=== PATIENT | male | born 1975 | race Caucasian/White ===

== ENCOUNTER → 2017-12-08 | Outpatient (CLI) | payer BC, OTHER ==
[~2017-12-08] MED LIST: ASPIRIN325 PO; ATORVASTATIN CA40 MG PO; CLARITIN10 MG PO; COZAAR 50 MG TA50 M1 PO; EFFIENT10 MG PO; FLOMAX PO; FLOMAX0.4 MG PO; HYDROCODONE-AP1 EAC6 PO; IBUPROFEN 600600 M1 PO; METOPROLOL SUCC25 M1 PO; NOHOMEMEDICATIONS; NORCO 5-325 TA1 EACH PO; ONDANSETRON HCL4 M2 PO; PERCOCET 5-3251 EACH PO; PHENERGAN 25 MG25 M1 PO; POTASSIUM CITRA5 ME1 PO; POTASSIUM CITRATE; PRILOSEC40 MG PO; ZOFRAN 4 MG ORAL4 M1 DIS; ZOFRAN ODT4 MG PO
--- NOTE | ~2017-12-08 | 2DMMODE ---
[facility] [employer] [place] [place] [address] 2 D/M-MODE ECHOCARDIOGRAM Name: VASQUEZAMIE Room #: REG [facility]#: [id number] Admission: 12/08/17 Attend Phys: Justice Anderson MD Discharge: Date of : 73 Date of Service: 12/08/17 1342 Report #: [id number] THIS REPORT FOR: //name// APPROVED REPORT Study performed: 12/08/2017 13:00:17 EXAM: Comprehensive 2D, Doppler, and color-flow Echocardiogram Patient Location: Out-Patient Room #: Echo lab Status: routine BSA: 2.11 HR: 71 bpm BP: 146/90 mmHg Other Information Study Quality: Good Indications CAD Hypertension/HDD 2D Dimensions RVDd: 37.82 mm LVEF(%): 62.56 (>50%) IVSd: 12.67 (7-11mm) LVOT Diam: 24.57 (18-24mm) LVDd: 49.71 mm PWd: 12.00 (7-11mm) Ascending Ao: 35.44 (22-36mm) LVDs: 32.86 (25-40mm) Aortic Root: 33.28 mm IVC: 19.00 mm Medina's LVEF: 62.56 % Volumes Left Atrial Volume (Systole) Single Plane 4CH: 46.79 mL Single Plane 2CH: 51.04 mL LA ESV Index: 27.00 mL/m2 Aortic Valve AoV Peak Nestor.: 1.12 m/s AO Peak Gr.: 5.05 mmHg LVOT Max P.37 mmHg LVOT Max V: 0.92 m/s YANIRA Vmax: 3.87 cm2 Mitral Valve E/A Ratio: 0.6 MV Decel. Time: 224.03 ms [facility] [employer] [place] [address] 2 D/M-MODE ECHOCARDIOGRAM Name: AMIE VASQUEZ Room #: [facility]#: [id number] Admission: 12/08/17 Attend Phys: Justice Anderson MD Discharge: Date of : 73 Date of Service: 12/08/17 1342 Report #: [id number] MV E Max Nestor.: 0.45 m/s MV A Nestor.: 0.71 m/s MV PHT: 64.97 ms IVRT: 156.86 ms Pulmonary Valve PV Peak Nestor.: 0.93 m/s PV Peak Gr.: 3.45 mmHg Pulmonary Vein P Vein S: 0.51 m/s P Vein A: 0.28 m/s P Vein D: 0.42 m/s P Vein A Dur.: 87.7 msec P Vein S/D Ratio: 1.21 Tricuspid Valve TR Peak Nestor.: 2.47 m/s TR Peak Gr.: 24.36 mmHg PA Pressure: 29.00 mmHg Left Ventricle The left ventricle is normal size. Mild concentric left ventricular hypertrophy. The left ventricular systolic function is normal. The left ventricular ejection fraction is within the normal range. LVEF is 55-60%. Grade I - abnormal relaxation pattern. Right Ventricle The right ventricle is normal size. The right ventricular systolic function is normal. Atria The left atrium size is normal. The right atrium size is normal. Aortic Valve The aortic valve is normal in structure. No aortic regurgitation is present. There is no aortic valvular stenosis. Mitral Valve The mitral valve is normal in structure. There is no mitral valve regurgitation noted. No evidence of mitral valve stenosis. Tricuspid Valve The tricuspid valve is normal in structure. There is trace tricuspid regurgitation. The right atrial pressure is estimated at mmHg. There is no pulmonary hypertension. Pulmonic Valve [address] [address] 2 D/M-MODE ECHOCARDIOGRAM Name: VASQUEZAMIE Room #: REG CL [facility]#: [id number] Admission: 12/08/17 Attend Phys: Justice Anderson MD Discharge: Date of : 73 Date of Service: 12/08/17 1342 Report #: [id number] The pulmonary valve is normal in structure. There is no pulmonic valvular regurgitation. Great Vessels The aortic root is normal in size. IVC is normal in size and collapses >50% with inspiration. Pericardium There is no pericardial effusion. <Conclusion> The left ventricle is normal size. The left ventricular systolic function is normal. Grade I - abnormal relaxation pattern. The right ventricle is normal size. The left atrium size is normal. The right atrium size is normal. The aortic valve is normal in structure. There is no mitral valve regurgitation noted. <ELECTRONICALLY SIGNED> By: Justice Anderson MD 12/08/17 1342 134 134 Justice Anderson MD /INF
== END ==
LOC: CV 08:23
DX: I25.10 Atherosclerotic heart disease of native coronary artery without angina pectoris (principal); I10 Essential (primary) hypertension

== ENCOUNTER → 2017-12-22 | Outpatient (CLI) | payer BC, OTHER ==
--- NOTE | ~2017-12-22 | EXE ---
[facility] [employer] [place] [address] STRESS ECHOCARDIOGRAM Name: VASQUEZAMIE Room #: REG [facility]#: [id number] Admission: 12/22/17 Attend Phys: Justice Anderson MD Discharge: Date of : 73 Date of Service: 12/22/17 1426 Report #: [id number] THIS REPORT FOR: //name// APPROVED REPORT Exam: Stress Echocardiogram Indication: CAD s/p MA, CAD s/p PCI, Hypertension Patient Location: Out-Patient Stress Nurse: Amanda Briggs RN Room #: Echo lab Status: routine Ht: 5 ft 8 in HR: 77 bpm BP: 140/58 mmHg Medical History Medical History: CAD s/p MA, CAD s/p stent, HTN, Hyperlipidemia Previous Cardiac Procedures: Myocardial infarctionPCI Exercise History: Physically active Procedure The patient underwent an Exercise Stress Test using the Chema Protocol. Blood pressure, heart rate, and EKG were monitored. An Echocardiogram was performed by chiller technician in four stages in quad fashion. At peak stress, four selected images were obtained and placed side by side with resting images for comparison. Stress Test Details Stress Test: Exercise stress testing was performed using a Chema protocol. HR Resting HR: 71 bpm Max Heart Rate (APMHR): 177 bpm Max HR Achieved: 157 bpm Target HR (85% APMHR): 150 bpm % of APMHR: 88 Recovery HR: 80 bpm HR response to stress: Normal HR response to stress BP Resting BP: 140/58 mmHg Max BP: 198/102 mmHg Recovery BP: 146/96 mmHg ECG Resting ECG: Sinus Rhythm [facility] [email or web address] [address] STRESS ECHOCARDIOGRAM Name: AMIE VASQUEZ Room #: REG CL [facility]#: [id number] Admission: 12/22/17 Attend Phys: Justice Anderson MD Discharge: Date of : 73 Date of Service: 12/22/17 1426 Report #: [id number] Stress ECG: Sinus Rhythm ST Change: Non-ischemic Clinical Reason for Termination: Maximal effort Exercise duration: 12 min sec Highest Stage Achieved: Stage 4: 4.2 mph at 16% grade. Exercise capacity: 13.7 METs Overall Exercise Capacity for Age: Good Pre-Stress Echo The resting Echocardiogram showed normal left ventricular contractility with an estimated Ejection Fraction of about 55-60%. Normal wall motion in all segments on baseline images. Post-Stress Echo The stress Echocardiogram showed normal left ventricular contractility with an estimated Ejection Fraction of about >70%. Normal augmentation of wall motion in all segments on post stress images. Clinical No clinical or ECG evidence for ischemia. Conclusion Clinical Response: Non-ischemic Exercise Capacity: Above average Stress ECG Response: Non-ischemic Stress Echo Images: Non-ischemic No clinical, EKG or echocardiographic evidence for ischemia. Other Information Study Quality: Good <Conclusion> No clinical, EKG or echocardiographic evidence for ischemia. <ELECTRONICALLY SIGNED> By: Justice Anderson MD 12/22/17 1426 1426 1426 Justice Anderson MD /INF
== END ==
LOC: CV 09:11
DX: I25.10 Atherosclerotic heart disease of native coronary artery without angina pectoris (principal); I10 Essential (primary) hypertension; Z95.1 Presence of aortocoronary bypass graft

== ENCOUNTER → 2020-02-16 | Outpatient (CLI) | payer OTHER | LOC: SJCVCIMAG 10:31 | DX: I25.10 Atherosclerotic heart disease of native coronary artery without angina pectoris (principal); I10 Essential (primary) hypertension; I25.2 Old myocardial infarction; E78.5 Hyperlipidemia, unspecified; Z95.5 Presence of coronary angioplasty implant and graft ==

== ENCOUNTER → 2021-12-06 | Outpatient (CLI) | payer OTHER | LOC: SJCVCIMAG 07:17 | PROVIDERS: ATTEND Internal Medicine Cardiovascular Disease | DX: R53.83 Other fatigue (principal) ==